=== PATIENT | female | born 1970 | race Caucasian/White ===

== ENCOUNTER 2018-04-11 09:30 | Emergency (ER) | payer BC ==
[~2018-04-11] VITALS: Ht 167.6 cm; Wt 81.8 kg
[~2018-04-11 09:30] MED LIST: OMNICEF 300MG300 MG PO
[2018-04-11 09:33] VITALS: BP 155/90; PULSE 99; TEMP 98.3
[2018-04-11 10:59] LABS: BASO % 0.3 % (0.0-2.0); EOS # 0.2 (0.0-0.7); EOS % 1.5 % (0-4.0); HEMOGLOBIN 11.4 g/dl (12.5-16.0); LYMPH % 18.4 % (20.0-51.0); MEAN CELL VOLUME 80 fl (80.0-100.0); MEAN CORPUSCULAR HEMOGLOBIN 25 pg (27.0-31.0); MEAN CORPUSCULAR HGB CONC 31 g/dl (33.0-37.0); MEAN PLATELET VOLUME 12.1 fl (7.4-10.4); MONO # 0.6 (0.1-0.6); MONO % 5.5 % (1.7-9.3); PLATELET COUNT 275 K/mm3 (130-400); RED BLOOD COUNT 4.64 M/mm3 (4.10-5.30); REDCELL DISTRIBUTION WIDTH-CV 15.9 % (11.5-14.5)
[2018-04-11 11:01] LABS: HEMATOCRIT 36.9 % (37.0-47.0)
[2018-04-11 11:09] LABS: ALBUMIN 3.7 gm/dL (3.5-5.0); BILIRUBIN,TOTAL 0.3 mg/dL (0.0-1.0); CREATININE, serum 0.8 mg/dL (0.52-1.25); POTASSIUM 4.1 mmol/L (3.4-5.0); TOTAL PROTEIN 6.6 gm/dL (6.4-8.2)
[2018-04-11 11:19] LABS: COLLECTION METHOD CLEAN CATCH
[2018-04-11 11:25] LABS: PH 5 (5-8); SQUAMOUS EPITHELIAL None Seen /hpf; URINE APPEARANCE Clear; URINE BACTERIA None Seen /hpf; URINE BILIRUBIN Negative (NEGATIVE); URINE BLOOD Negative (NEGATIVE); URINE COLOR Straw; URINE GLUCOSE Negative (NEGATIVE); URINE KETONE Negative (NEGATIVE); URINE LEUKOCYTE ESTERASE Negative (NEGATIVE); URINE NITRATE Negative (NEGATIVE); URINE PROTEIN(semi-quant) Negative (NEGATIVE); URINE RBC 0-2 /hpf; URINE UROBILINOGEN Negative (NEGATIVE)
[2018-04-11] MEDS ORDERED: PROTONIX 40MG T40 MG PO (13:00)
== END 2018-04-11 13:12 | disposition home or self-care (01) ==
LOC: COL.ER 09:30
PROVIDERS: Nurse Practitioner Primary Care
DX: K29.70 Gastritis, unspecified, without bleeding (principal); F17.210 Nicotine dependence, cigarettes, uncomplicated
CPT/HCPCS: J1885; Q9967

== ENCOUNTER 2018-05-28 11:17 | Day surgery (SDC) | payer BC ==
[~2018-05-28] VITALS: Ht 167.6 cm; Wt 86.4 kg
[2018-05-28] VITALS (8 sets, daily range): BP systolic 100–125; BP diastolic 64–88; PULSE 61–85; TEMP 97.6–98.3
[~2018-05-28 11:17] MED LIST changes: +PROTONIX 40MG T40 MG PO
[2018-05-28] MEDS ORDERED: CHANTIX 1MG1 MG PO (11:31)
[2018-05-28] MEDS ORDERED: PROBIOTIC ACID1 EAC3 PO (11:34)
[2018-05-28] MEDS ORDERED: IRON TABLETS325 MG PO (11:34)
[2018-05-28] MEDS ORDERED: NORCO 325 MG-51 TAB PO (13:02)
[2018-05-28] MEDS ORDERED: MOTRIN 800800 MG/TAB PO (13:02)
== END 2018-05-28 21:10 ==
LOC: SDCO 11:17
DX: N92.0 Excessive and frequent menstruation with regular cycle (principal); D25.0 Submucous leiomyoma of uterus; D25.1 Intramural leiomyoma of uterus; D39.11 Neoplasm of uncertain behavior of right ovary; N83.11 Corpus luteum cyst of right ovary; N84.0 Polyp of corpus uteri; N83.8 Other noninflammatory disorders of ovary, fallopian tube and broad ligament; D64.89 Other specified anemias; D50.9 Iron deficiency anemia, unspecified; F17.210 Nicotine dependence, cigarettes, uncomplicated; K21.9 Gastro-esophageal reflux disease without esophagitis; Z80.0 Family history of malignant neoplasm of digestive organs; Z80.8 Family history of malignant neoplasm of other organs or systems; Z80.1 Family history of malignant neoplasm of trachea, bronchus and lung; Z80.7 Family history of other malignant neoplasms of lymphoid, hematopoietic and related tissues
CPT/HCPCS: A4314; J0690; J1100; J1170; J1885; J2704; J2710; J3010; J7120

== ENCOUNTER → 2018-06-18 | Outpatient (CLI) | payer BC ==
[~2018-06-18] MED LIST changes: +CHANTIX 1MG1 MG PO; +IRON TABLETS325 MG PO; +MOTRIN 800800 MG/TAB PO; +NORCO 325 MG-51 TAB PO; +PROBIOTIC ACID1 EAC3 PO
== END ==
LOC: MC.RAD 14:20
DX: Z12.31 Encounter for screening mammogram for malignant neoplasm of breast (principal)